=== PATIENT | male | born 1945 | race Caucasian/White ===

== ENCOUNTER 2018-12-16 13:08 | Inpatient (IN) | payer OTHER, BC ==
[~2018-12-16] VITALS: Ht 190.5 cm; Wt 77.7 kg
--- NOTE | ~2018-12-16 | EMS ---
[address] [address] EMS Patient Care Report Name: ROSEMARIE PETTIT Room #: 522B-B ADM IN M.R.#: [id number] Admission: 12/16/18 Attend Phys: Umair Pedraza DO Discharge: Date of : 45 Report #: [id number] THIS REPORT FOR: //name// Report Transmitted: 12/19/2018 09:42 EMS Care Summary [facility] MED-ACT Incident [id number] @ 12/16/2018 12:33 Incident Location [address] [place] [address] Patient ROSEMARIE PETTIT Male, 73 Years 1945 Patient Address [id number] [place] [address] Patient History Dementia,Hypertension,Parkinson's Disease,Depression,Anxiety, Patient Allergies Aspirin,Other drug allergy, Patient Medications Other, Atenolol, Chief Complaint Nausea post fall Disposition Transported No Lights/[place] Reason Falls Transported To [facility] Narrative [id number] dispatched code 3 to SNF on a fall. M1150 arrives on scene. Patient contact. Patient is sitting upright in a chair in the main foyer with staff [address] [address] EMS Patient Care Report Name: ROSEMARIE PETTIT Room #: 522B-B ADM IN M.R.#: [id number] Admission: 12/16/18 Attend Phys: Umair Pedraza, Discharge: Date of : 45 Report #: [id number] awaiting EMS. No immediate airway, breathing, or circulation life threats are noted. Patient appears to be a GCS of 14, which per staff, is the patient's baseline LOC secondary to dementia and reports that the patient is a resident of their dementia SNF unit. Staff reports that the patient fell from a standing position about x1 hour ago and had a witnessed fall. Patient is unsure if he struck his head, but denies any loss of consciousness. Patient reports that the chair he was holding had wheels / balls on the bottom that caused the chair to give out from him as he was bracing on it and he fell to the ground. Fire reports that they were there earlier for this incident and report lift assist only at that time as the family was contacted and they did not want him transported. Fire reports the patient had no complaints at that time. Staff reports that the patient should have been transported earlier as it is their policy that memory care patient's be transported post fall no matter what. Patient reports that he is now having some slight nausea after the fall, but denies any vomiting or diarrhea or pain. Patient denies any pain anywhere. Patient denies any neck or back pain, nor is any elicited with palpation. Patient denies any blood thinner medications or bleeding disorders. Patient denies any shortness of breath. Patient denies any headache, visual disturbances, or dizziness. Patient denies anything causing or leading up to fall as far as medical symptoms. Staff reports that the patient is more fatigued as well post fall, but the patient reports this is false and reports no increased fatigue. Staff reports family requests that the patient be taken to [facility] ER for further evaluation. Initial V/S and physical exam performed. A HTHN is noted. Physical exam findings are noted. Patient is able to stand and sit on the cot. Patient is secured to the cot. Patient is moved to and loaded into ambulance. Transport initiated non emergent to [facility]. En route patient's ABC's, LOC, V/S, and condition are monitored and reassessed with no significant changes are noted. Patient remains his baseline GCS of 14 upon arrival to the ER. Patient is transferred to [facility] nursing staff in ER room 4 via patient being able to stand and sit on ER bed. Incident terminated and M1150 is back in service. *HEAD: NO DCAP-BTLS. AIRWAY PATENT AND EYES PIERRE. *NECK: NO DCAP-BTLS. NO JVD, STOMA, SUB Q AIR, RETRACTIONS, OR MED ALERT TAGS ARE NOTED. TRACHEA MIDLINE. *CHEST: CHEST WALL PATENT WITH GOOD CHEST RISE NOTED. NO FLAIL CHEST OR PARADOXICAL MOTION NOTED. *ABDOMEN: NO DCAP-BTLS. ABDOMEN SOFT. NO MASSES, PULSATIONS, OR EVISCERATIONS ARE NOTED. *PELVIS: NO DCAP-BTLS. PELVIS APPEARS TO BE STABLE AND INTACT. NO OBVIOUS BLOOD OR INCONTINENCE NOTED. *BACK: NO ABNORMAL FINDINGS ARE NOTED OR REPORTED. *EXTREMITIES: NO DCAP-BTLS. GOOD PMS NOTED IN BOTH UPPER EXTREMITIES. GOOD MOTOR FUNCTION NOTED IN BOTH LOWER EXTREMITIES. [facility] [address] [place] [address] EMS Patient Care Report Name: ROSEMARIE PETTIT Room #: 522B-B ADM IN M.R.#: [id number] Admission: 12/16/18 Attend Phys: Umair Pedraza DO Discharge: Date of : 45 Report #: [id number] *SKIN: WARM, DRY, GOOD COLO. Initial Vitals @12:39P: 50,R: 16,BP: 178/92,Pain: 0/10,GCS: 14,SpO2: 98,Revised Trauma: 12, @12:54P: 50,R: 16,BP: 172/90,Pain: 0/10,GCS: 14,SpO2: 98,Revised Trauma: 12, Assessments @12:39MENTAL:Person Oriented,Event Oriented,Place Oriented,SKIN:HEENT:Head/Face: No Abnormalities,Neck/Airway: No Abnormalities,LUNG SOUNDS:General: Nausea,ABDOMEN:General: Nausea,PELVIS//GI:No Abnormalities,EXTREMITIES:Left Arm: No Abnormalities,Right Arm: No Abnormalities,Left Leg: No Abnormalities,Right Leg: No Abnormalities,PULSE:NEURO:No Abnormalities, Impression Nausea Timeline 12:32,Call Received 12:32,Psap Call 12:33,Dispatched 12:34,En Route 12:36,On Scene 12:37,At Patient 12:39,BP: 178/92 M,PULSE: 50,RR: 16 R,SPO2: 98 Ox,ETCO2: ,BG: ,PAIN: 0,GCS: 14, 12:43,Depart Scene 12:54,BP: 172/90 M,PULSE: 50,RR: 16 R,SPO2: 98 Ox,ETCO2: ,BG: ,PAIN: 0,GCS: 14, 13:04,At Destination 13:30,Call Closed Disclaimer v1.1 Copyright 2019 [employer] This EMS Care Summary contains data elements from the applicable legal record (which may be displayed differently). It is designed to provide pertinent information for the following purposes: continuity of care, clinical quality, and state data reporting. The complete legal record is available to ED staff and administrators of the receiving hospital in [employer] Patient Tracker. All data is provided "as is."
[2018-12-16 13:09] VITALS: BP 135/83
[2018-12-16] MEDS ORDERED: SINEMET 25-1001 EAC1 PO (13:22)
[2018-12-16] MEDS ORDERED: GABAPENTIN100 MG PO (13:22)
[2018-12-16] MEDS ORDERED: ATENOLOL 25 MG25 M1 PO (13:22)
[2018-12-16] MEDS ORDERED: DULOXETINE HCL60 MG PO (13:23)
[2018-12-16] MEDS ORDERED: MIRALAX119 GM PO (13:24)
[2018-12-16] MEDS ORDERED: XANAX1 MG PO (13:24)
[2018-12-16] MEDS ORDERED: NEURONTIN 400M400 M2 PO (13:24)
[2018-12-16] MEDS ORDERED: SEROPHENE50 MG PO (13:25)
[2018-12-16] MEDS ORDERED: LISINOPRIL2.5 MG PO (13:25)
[2018-12-16] MEDS ORDERED: AMITRIPTYLINE H50 M3 PO (13:25)
[2018-12-16] MEDS ORDERED: OXYBUTYNIN 5 MG5 M2 PO (13:25)
[2018-12-16] MEDS ORDERED: SEROQUEL 50 MG50 MG PO (15:00)
[2018-12-16 15:54] LABS: ABSOLUTE NEUTROPHILS 4.1 thou/uL (1.4-8.2); BASOPHILS 0.6 % (0.0-2.0); HEMATOCRIT 42.1 % (42.0-52.0); HEMOGLOBIN 14.3 gm/dL (14.0-18.0); LYMPHOCYTES 17.3 % (24.0-44.0); MCH 32.3 pg (26.0-34.0); MCV 95.1 fL (80.0-100.0); MONOCYTES 7.2 % (1.0-8.0); PLATELET COUNT 206 thou/uL (150-400); POLYS 70.9 % (36.0-66.0); RBC 4.43 mil/uL (4.50-6.00); WBC 5.8 thou/uL (4.0-11.0)
[2018-12-16 16:03] LABS: CALCIUM 8.9 mg/dL (8.5-10.1); CREATININE 1.1 mg/dL (0.7-1.3); POTASSIUM 3.6 mmol/L (3.5-5.1)
[2018-12-16 16:09] LABS: ALBUMIN 3.6 g/dL (3.4-5.0); DIRECT BILIRUBIN 0.1 mg/dL (<0.1-0.3); TOTAL BILIRUBIN 0.5 mg/dL (<0.1-1.0); TOTAL PROTEIN 6.8 g/dL (6.4-8.2)
[2018-12-16 16:28] LABS: URINE BILIRUBIN NEGATIVE (Negative); URINE BLOOD NEGATIVE (Negative); URINE CLARITY CLEAR; URINE COLOR YELLOW; URINE GLUCOSE-RANDOM* NEGATIVE (Negative); URINE KETONES NEGATIVE (Negative); URINE LEUKOCYTES-REFLEX NEGATIVE (Negative); URINE NITRITE-REFLEX NEGATIVE (Negative); URINE PROTEIN (DIPSTICK) NEGATIVE (Negative); URINE UROBILINOGEN 0.2 E.U./dl (0.2-1.0)
[2018-12-16 17:45] VITALS: BP 177/102
[2018-12-16 18:03] VITALS: BP 182/106
--- NOTE | 2018-12-16 18:23 | NUR ---
73 YEAR OLD MALE ARRIVES VIA WC FROM ER. PER ER REPORT CAME IN FROM [facility] AFTER A NON-INJURY FALL-REPORTED TO HAVE LONG HX OF DEPRESSION AND RECENTLY COMPLETED ECT SEPTEMBER 2018-RECENTLY HAS BECCOME MORE TEARFUL,MOOD SWINGS,INSOMNIA AND SOMATIC PREOCCUPATION,PARANOID THINKING IS HIM AND HAVING AFFAIRS AND HE WAS PLACED AT ASSISTED LIVING TO "GET ME OUT OF THE WAY" CALLING MULTIPLE TIMES DURING THE NIGHT. BP ELEVATED ON ADMIT AT 180/100. ALERT AND ORIENTED TO PERSON/PLACE-CONSTRICTED AFFECT ON ADMIT.
[2018-12-16 19:30] VITALS: BP 220/119
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
[2018-12-17 09:01] VITALS: BP 109/67
[2018-12-17 14:10] VITALS: BP 181/95; BP 196/108
--- NOTE | 2018-12-17 17:15 | NUR ---
SW spoke with pt's spouse and completed the SW intake. Fmaily meeting set up for 11 am 12/18.
[2018-12-17 17:35] VITALS: BP 144/91
--- NOTE | 2018-12-17 20:13 | NUR ---
Sleeping without s/o distress. Cooperative when awakened. Denies SI/HI, pain. Orientated to person and place. Gait very unsteady when up to bathroom. Placed in w/c for safety. Color pink with brisk capillary refill and palpable peripheral pulses. Reg HR auscultated in the low 50s. BP normotensive. Meds held d/t HR 52 and sBP <120. Breath sounds clear t/o, bilaterally equal. Active bowel sounds over soft, flat abdomen. 1200 Up ambulating in unit. States he is not having any anxiety. Participating in group. 1400 Palpable radial pulses +2/+4. Denies ANDERSON or discomfort. Repeated BP d/t HTN last night. BP 196/108 in R arm, 181/95 in L arm. States his BP is always labile. Dr. Aviles notified, Clonidine 0.1 mg ordered bid to start immediately so that he gets a dose at 1500 and one at 2100. 1600 Wanting to call . Attempted to call several times but phone was busy. He then gave me a number with a 913 area code to call . She stated to me on the phone that we needed to take that phone number off the list. I explained that he had given me the number to call. She agreed to speak with him. He spoke with her for approximately 10 min on the phone and stated she would talk to him again at 1100 tomorrow. Sat in dining room. 1700 Ambulating around unit and spending alot of time at nurses station. Requesting pen to write down information to discuss with Dr. Pedraza. Spoke with Dr. Pedraza in [facility] about plan of care. Repeat BP at 1735 was 144/91. 1830 Confused speech. States didn't give him amitriptiline for sleep from [facility]. Becoming fixated on amitriptiline for sleep. Requested charge nurse to speak to Dr. Pedraza regarding medication for sleep. Trazadone ordered for 2099. 1845 Charge nurse reports that he is becoming increasingly anxious. She gave him Ativan PO.
[2018-12-17 21:14] VITALS: BP 202/119
[2018-12-17 21:53] VITALS: BP 181/106
[2018-12-18 03:41] VITALS: BP 183/122
--- NOTE | 2018-12-18 03:57 | NUR ---
1909-Report received from day shift nurse and care assumed. The pt. was cooperative, A/O x2, notably anxious but polite and wanted to go to his room. No c.o. chest pain, shortness or air, or discomfort anywhere. His VS were taken at 1920 and eo=198/119, p=61. The Nurse Practioner was called and said to give the Lisinopril and Atenolol that were held this morning for low SBP. Re-check was = 181/106, p=60 after an hour. He was compliant with his other medications at also. He went to bed and slept for a few hours. At [facility] he was awake with anxiety and confusion about "where his shoes were because he was leaving in the morning". He was cordial, redirected to the situation and was given his scheduled Sinemet at midnite and also Ativan 0.5 mg. po prn. He slept for a few more hours. He began getting anxious at about 0300 and turned on his light and wrote notes/numbers on a paper. He said he needed "to go the bank down the street, I am not saying why, in the morning" BP was taken and was = 183/122, p=63. Nurse Practioner was called and ordered Hydralazine 50 mg. po prn q 6 hours for sbp>160 and it was given to him at 0345. He was notably nervous about "going to the bank in the morning" and he was looking at his numbers and notes he wrote. He was talked with awhile to calm him, he had no c.o. pain, no c.o. chest pain or shortness of air, and sitting on his bed with the light on. Will monitor high blood pressure readings.
--- NOTE | 2018-12-18 04:54 | NUR ---
The pt. said where is the front door repeatedly. He said "I have a meeting today at 11, is that the front door?" repeatedly.The pt. was in his room and when a blood pressure was being taken, he became acutely suspicious and said "you put something in there" and ripped the cuff off and left the room. He went to the exit door and pushed on the handle, differnt exit doors and said "where is the ground floor", "you put something in there". called and orderd Geodon 15 mg. IM x 1 now. He refused a re-check of his BP at this time. No c.o. chest pain, or shortness of air.
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
[2018-12-18 06:27] VITALS: BP 119/83
--- NOTE | 2018-12-18 06:28 | NUR ---
At 0630 the pt. was sitting in the day room, awakened and was compliant with bp and p test. He said "Oh, you have the day of reckoning". He had been sleeping softly relaxed for about 1 hour. Yj=038/83, p=50. No c.o. pain.
[2018-12-18 08:20] VITALS: BP 139/83
--- NOTE | 2018-12-18 08:25 | NUR ---
PT UP WALKING AROUND THIS AM. PT GAIT SEMI-WOBBLES. PT DIDN'T WANT TO TAKE BP MEDS AT FIRST STATING HE DIDN'T NEED THEM BECAUSE BP IS NORMAL 139/83. ENCOURAGED PT TO TAKE BP MEDS DUE TO MEDS HELP KEEP IT AT A NORMAL RANGE. HE WAS WORRIED OF BP BEING TOO LOW. PT ALSO WANTED TO HAVE REPORE WITH NURSE AND TALK ABOUT ANTI-PARKINSONS MEDS. PT STATED THEY ARE VERY IMPORTANT TO TAKE AND HE TAKES 4 A DAY. PT WANTED THIS INFO TO BE CONFIDENTIAL.
[2018-12-18 08:55] VITALS: BP 139/83
--- NOTE | 2018-12-18 17:34 | NUR ---
SW attended a family meeting with wilber, Aba (), and Yas. Both reported to SW that pt resides at [facility] in [place] and wants him to get stable enough to return there. They said he had a fall and has been behaving bizarre. He has been diagnosed with a Parkinson's in the past. The psych doctor would like pt to add painting and art work to his treatment as these are activities during his stay as they wre activities in enjoyed in the past. Pt reports that he notices he feels different between the hours of [id number]. The would like to meet again with the psych doctor for a family meeting next sunday at 11am. SW team will continue to follow pt during his stay.
[2018-12-18 20:21] VITALS: BP 217/126
[2018-12-18 23:03] VITALS: BP 217/126
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
--- NOTE | 2018-12-19 03:02 | NUR ---
PT RESTLESS AND DEFENSIVE EARLY IN SHIFT. ALLOWED PHYSICAL ASSESSMENT, BUT BECAME INCREASINGLY PARANOID. REFUSED HS MEDS. CLAIMING THAT WE ARE TRYING TO POISON HIM. PICKED UP A WALKER AND WAS THREATENING STAFF. SECURITY CALLED AND PT ESCORTED TO HIS ROOM AND GIVEN IM OF GEODON 15MG IM TO RT [place]. REMAINED RESTLESS FOR ANOTHER 30 MINUTES, BUT EVENTUALLY TOOK TO HIS BED AND HAS BEEN SLEEPING SINCE.
[2018-12-19 08:00] VITALS: BP 153/93
--- NOTE | 2018-12-19 08:00 | NUR ---
PT IN ROOM AND SHUTTING DOOR. PT STATED HE WAS IN THE MIDDLE OF SOMETHING AT THIS MOMENT, HE HAD HIS PANTS OFF. ASKED PT IF HE HAD SOME MORE PANTS, HE STATED YES AND SHUT DOOR. THIS NURSE NEEDED TO CHECK BP AND GIVE HIM MEDS.
[2018-12-19 08:14] VITALS: BP 186/120
--- NOTE | 2018-12-19 08:26 | NUR ---
ADM LORAZEPAM 0.25MG FOR ANXIETY AND HYDROLAZINE 50MG FOR BP 186/120, PULSE 70. PT TOOK MEDS WITHOUT ANY ISSUES. PT SITTING OUT IN DAY ROOM. PT WAS UP WALKING AROUND LOOKING FOR HIS WESTLEY. PT SMILING AFTER GETTING OUT OF ROOM.
--- NOTE | 2018-12-19 09:24 | NUR ---
RECHECKED BP AND WAS 153/93.
[2018-12-19 09:29] VITALS: BP 153/93
--- NOTE | 2018-12-19 10:00 | NUR ---
DR. CORMIER RECHECKED BP IS 148/95, 55.
--- NOTE | 2018-12-19 11:06 | NUR ---
PT CLAPPING HANDS IN BED.
[2018-12-19 11:50] LABS: HEMATOCRIT 41.8 % (42.0-52.0); MCHC 33.6 g/dL (28.0-37.0); MCV 95.1 fL (80.0-100.0); RBC 4.39 mil/uL (4.50-6.00); WBC 7.7 thou/uL (4.0-11.0)
[2018-12-19 12:04] LABS: CALCIUM 9.4 mg/dL (8.5-10.1); CREATININE 1.2 mg/dL (0.7-1.3); MAGNESIUM 2.2 mg/dL (1.8-2.4); POTASSIUM 3.6 mmol/L (3.5-5.1)
--- NOTE | 2018-12-19 14:49 | NUR ---
OBTAINED ORTHO BP SITTING BP 179/108, PULSE 58. STANDING 154/106, PULSE 60. PT WANDERING AROUND UNIT.
--- NOTE | 2018-12-19 15:59 | NUR ---
ADM LISINOPRIL 10MG PO X1 AND ALSO ATIVAN 0.25MG PO FOR ANXIETY AND ELEVATED BP.
[2018-12-19 19:39] VITALS: BP 182/105
--- NOTE | 2018-12-20 01:35 | NUR ---
Care assumed of patient at 1915: Patient alert and oriented to person. Confused on current time and location. Patient forgetful at times. Patient seated in day room at start of shift. Patient would watch part of football game that was playing then he was visualized pacing the halls, restless. Patient had difficulty making eye contact at times, would look at nurse suspicious. Patient would speak clear, logical thoughts at times then would speak non-sensical, disorganized thoughts. Patient woke up to use the bathroom around midnight. Patient disoriented, walking briskly, unsteady. Patient continent of bladder. Nurse provided medication scheduled at midnight at that time. Patient held medication and stated "will it hurt?" Patient was convinced that the pills were going to make him . Patient asked to use the phone to call his to say goodbye. Patient at one point asked to , he then stated he wasn't ready to and it was illegal for the state of [place]. Nurse sat with patient for quite awhile to re-orient him to the hospital and the purpose of the medication provided. In the midst of the non-sensical speech, he would have clear thoughts about just watching the football game and having yogurt for HS snack. Odd behaviors observed. Patient did end up taking all medications prescribed thus far this shift. Patient was able to go back to sleep after a long conversation with nurse. No aggression observed. No s/s of AH/VH observed. Patient did deny SI/HI but had the paranoia and fear that he was being killed. Patient did give a note to nurse to give to his Aba, to see if she could meet him for breakfast. Notified patient that he will be able to see or speak with Aba in the morning. Patient was able to fall back asleep and has been resting since.
[2018-12-20 07:20] VITALS: BP 198/117
[2018-12-20 08:00] VITALS: BP 198/117
--- NOTE | 2018-12-20 08:08 | EKG ---
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
--- NOTE | 2018-12-20 08:10 | NUR ---
PT DIDN'T KNOW WHAT HE WAS DOING HERE AND DIDN'T KNOW HIS NAME, ASKED PT HIS NAME AND HE STATED IT. PT STATED THAT SOMETHING ISN'T RIGHT, HE STATED HE FEELS LIKE HE GOT AMNESIA. PT DOESN'T APPEAR ALERT THIS AM. PT SEEMS SCARED.
--- NOTE | 2018-12-20 09:30 | NUR ---
DR. MORALES HERE FOR NEUROPSYCH TESTING. PT DIDN'T WANT TO GO INTO ROOM FOR TESTING. PT WANTING TO TALK WITH . PT JUST OFF PHONE WITH RICKIE HIS DAUGHTER. HE DIDN'T WANT HIS DAUGHTER TO GET OFF PHONE, HE STATED SOMETHING IS WRONG AND HE IS AT [facility] BUT DIDN'T KNOW WHY HE IS HERE. HE IS WANTING DAUGHTER TO COME GET HIM. PT WENT INTO ROOM FOR TESTING AND CAME OUT A FEW MINS LATER.
--- NOTE | 2018-12-20 10:57 | NUR ---
ADM ATIVAN 0.25MG PO FOR ANXIETY. PT SITTING ON COUCH AND WANTING SOMEONE TO TAKE HIM BACK TO [facility].
--- NOTE | 2018-12-20 11:41 | NUR ---
ALMA ROSA discussed with treatment team about pt's Aba and daughter Yas not wanting any updates to be provided to [facility] Elizalde. Due to the concern about continuity of care of pt being interrupted due to hospital not having the ability to communicate with his current [facility] facility, it was suggested that SW contact Aab to discuss if she would be comfortable now with hospital communicating with [facility]. ALMA ROSA contacted Aba to discuss communication with [facility], and she said she still would prefer hospital staff do not communicate with . She explained that she has worked in the medical field for a very long time and knows that information could work against pt. However, she did say she may feel more comfortable with updates being sent closer to pt' d/c date. ALMA ROSA explained that facilities have the right to say they will not take pts back without updates on care in the hospital. Aba agreed. ALMA ROSA and Aba will revisit this matter during the next family meeting on 01/25 @11am. SW team will continue to follow pt during his stay.
--- NOTE | 2018-12-20 14:21 | NUR ---
ADM CLONIDINE 0.2MG X1 AND ALSO LORAZEPAM 0.25MG PER DR. GAVIN. PT TAKEN MANUAL AND AUTOMATIC. PT BP 218/212.
--- NOTE | 2018-12-20 14:35 | NUR ---
PT REQUESTED TO LAY DOWN PER DRAlan ORDERS. PT STATED HE WANTED TO TELL THE DRAlan WHAT HE WANTED TO KNOW. PT ALSO STATED HE WANTED TO TALK WITH SOME MORE OF THE PHONE, PT WANTING HIS LEATHER SHOES.
[2018-12-20 15:03] LABS: HEMATOCRIT 42.4 % (42.0-52.0); HEMOGLOBIN 14.4 gm/dL (14.0-18.0); MCH 32.3 pg (26.0-34.0); RBC 4.46 mil/uL (4.50-6.00); WBC 5.9 thou/uL (4.0-11.0)
[2018-12-20 15:17] LABS: ALBUMIN 3.9 g/dL (3.4-5.0); CALCIUM 9.3 mg/dL (8.5-10.1); CREATININE 1.3 mg/dL (0.7-1.3); MAGNESIUM 2.2 mg/dL (1.8-2.4); POTASSIUM 3.5 mmol/L (3.5-5.1); TOTAL BILIRUBIN 0.5 mg/dL (<0.1-1.0); TOTAL PROTEIN 7.2 g/dL (6.4-8.2)
--- NOTE | 2018-12-20 15:35 | NUR ---
NOTIFIED DR. GAVIN ABOUT RECHECK TO BP OF 189/108, PULSE 67 SAT 95%. PT TALKING ABOUT WHEN HE WENT TO HOSPITAL IN AMBULANCE ONE TIME AND THEY STOPPED AND PARAMETIC SAID THAT IS UNUSUAL HAVE YOU SEEN THAT BEFORE. PT ASSISTED TO GETTING UP AND WAS UNSTEADY.
[2018-12-20 15:38] VITALS: BP 189/109
--- NOTE | 2018-12-20 16:14 | NUR ---
RECHECKED BP 189/108, ADM NORVASC 10MG PO.
--- NOTE | 2018-12-20 16:55 | NUR ---
PT UP WALKING AROUND AND WANTING TO GET CHECKED OUT OF HERE. STATED TO PT THAT WE ARM MONITORING HIS BP MORE. PT STATED THAT IT FLUCTUATES AND GOES UP AND DOWN. PT WANTING TO TALK TO WESTLEY. CALLED WESTLEY AND LET HER KNOW HE IS WANTING TO GO HOME. SHE STATED HE GETS MORE CONFUSED IN EVENING.
[2018-12-20 23:05] VITALS: BP 132/87
--- NOTE | 2018-12-21 00:20 | NUR ---
ASSUMED CARE OF THE PT AT 191 PM. THE PT WAS STANDING AT THE NURSES' STATION, HE TOOK HIS HS MEDICATIONS WITHOUT ANY DIFFICULTY. THE PT KEPT STANDING THERE AND HE WOULD NOT LEAVE THE NURSES' STATION. WALKS WITH A FAIRLY STEADY GAIT. HE WENT TO BED WITHOUT ANY DIFFICULTY.
--- NOTE | 2018-12-21 04:29 | NUR ---
THE PT APPEARS TO BE SLEEPING AT THIS TIME. REMAINS ON 12 MINUTE CHECKS FOR HIS SAFETY.
--- NOTE | 2018-12-21 06:09 | NUR ---
THE PT SLEPT 8 HOURS LAST NIGHT.
[2018-12-21 09:12] VITALS: BP 170/98
[2018-12-21 10:37] LABS: HEMATOCRIT 44.4 % (42.0-52.0); HEMOGLOBIN 14.9 gm/dL (14.0-18.0); MCHC 33.6 g/dL (28.0-37.0); MCV 95.5 fL (80.0-100.0); RBC 4.65 mil/uL (4.50-6.00); RDW 13.1 % (10.5-14.5); WBC 6.2 thou/uL (4.0-11.0)
[2018-12-21 10:52] LABS: CALCIUM 9.3 mg/dL (8.5-10.1); CREATININE 1.4 mg/dL (0.7-1.3); MAGNESIUM 2.2 mg/dL (1.8-2.4); POTASSIUM 3.3 mmol/L (3.5-5.1)
[2018-12-21 11:32] VITALS: BP 170/98
--- NOTE | 2018-12-21 11:43 | NUR ---
PATIENT WAS NPO PRIOR TO RENAL DOPPLER, PROCEDURE COMPLETED, RESULT IN CHART. PATIENT REMAIN CONFUSED, WANDERS, BUT REDIRECTABLE. PATIENT TOOK ALL MORNING MEDICATIONS EXCEPT MIRALAX " I ALREADY HAD BOWEL MOVEMENT". PATIENT INITIALLY REFUSED LAB DRAW THIS MORNING, " I HAVE TO TALK TO MY IF SHE APPROVES IT, I WILL LET HER DRAW BLOOD". PATIENT'S CALLED, AFTER TALKING TO , HE THEN ALLOWED BLOOD DRAW. PATIENT DENIES SUICIDAL/HOMICIDAL IDEATION. HE DENIES DEPRESSION/ANXIETY. NO AGTIATION OR AGGRESSIVE BEHAVIOR NOTED AT THIS TIME. PATIENT HAD A GOOD VISIT WITH . CURRENTLY UP AMBULATING IN THE [place]. AFFECT REMAIN FLAT, MOOD DEPRESSED, NO SIGN OF ACUTE DISTRESS NOTED AT THIS TIME, WILL MONITOR FOR SAFETY.
--- NOTE | 2018-12-21 16:12 | NUR ---
Pt requested to visit for some counseling. We met for 60 minutes and discussed his feelings about having Parkinson's , his coping skills and his feelings about his marriage and living in [facility]. This included some grief counseling but primarily Acceptance and Commitment therapy. Pt and Sw dicusssed the tension created when trying to control something that cannot be controlled and accepting life on life's terms. He dsiclosed some sadness about living in [place].
[2018-12-21 22:07] VITALS: BP 160/78
--- NOTE | 2018-12-21 23:19 | NUR ---
ASSUMED CARE OF THE PT AT 191 PM. THE PT WAS IN BED WHEN THIS REPAIRER TYPEWRITER CAME ON DUTY. HE THEN GOT UP AND ATE A SNACK. DENIES ANXIETY, DEPRESSION, SI/HI, A/V HALLUNICATIONS. WALKS WITH A STEADY GAIT. REMAINS ON 12 MINUTE CHECKS FOR HIS SAFETY.
--- NOTE | 2018-12-22 03:53 | NUR ---
THE PT APPEARS TO BE SLEEPING IN BED AT THIS TIME. [address] FOR HIS SAFETY.
--- NOTE | 2018-12-22 05:51 | NUR ---
the pt slept 8.6 hours last night.
--- NOTE | 2018-12-22 09:57 | NUR ---
hAS BEEN UP WANDERING AROUND UNIT, HE HAS BEEN QUIET, BUT ANSWERS QUESTIONS APPROPRIATELY, HE IS ALERT AND SOMEWHAT FORGETFUL AND CONFUSED, HE KNEW HIS NAME BUT WAS NOT SURE WHERE HE WAS, DID NOT KNOW THE DATE OR TIME, HE ATE BREAKFAST AND TOOK HIS MEDS WITHOUT ISSUES, HE IS CALM, HE DENIES SI/HI AND AVH. CONTINUE TO MONITOR FOR BEHAVIORS AND SAFETY ISSUES.
[2018-12-22 12:50] VITALS: BP 145/95
--- NOTE | 2018-12-22 15:00 | NUR ---
Barb met with pt per his request. He stated that he was aware that he was more confused today, and was shocked to hear that he was in inpt psych and for how long. We called his to say hi and he asked her to come and visit. Barb nichols provided him wiht a note about where he is, and when the family meeting would be, and who was his SW.
--- NOTE | 2018-12-22 23:13 | NUR ---
AT 23O0 PATIENT BECAME AGGRESSIVE TOWARDS STAFF AND PATIENT'S NURSE AND CHARGE NURSE SET OFF ALARM TO SECURITY. THIS NURSE CALLED LASHAWN METZGER CLINICAL EDUCATION SPECIALIST FOR ORDERS FOR PRN MEDS. PATIENT HAD GEODON 10MG IM AT 1747 AND NO OTHER PRNS WERE APPROPRIATE. ORDERS RECEIVED FOR HALDOL 5MG IM AND COGENTIN 1MG IM NOW WERE GIVEN AT THIS TIME.
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
--- NOTE | 2018-12-22 23:43 | NUR ---
ASSUMED CARE OF PT AT 1914--PT ASLEEP IN QUIET ROOM. 2244--PT EXITED THE QUIET ROOM AND BECAME PHYSICALLY AGGRESSIVE WITH STAFF--WOULD NOT GO BACK TO ROOM--WHEN STAFF TRIED TO ASSIST PT BECAME MORE PHYSICALLY AGGRESSIVE--SECURITY CALLED. SECURITY ASSISTED PT TO BED. SHORTLY THEREAFTER PT AGAIN EXITED THE ROOM PUSHING STAFF AND BACKING STAFF AGAINST WALL AND AGGRESSIVELY FORCING STAFF INTO ACTIVITY ROOM. EMERGENCY BUTTON ACTIVATED IN ACTIVITY ROOM. SECURITY RESPONDED ONCE AGAIN. PT BECAME AGGRESSIVE WITH SECURITY LUNGING AT ONE OFFICER. CHARGE NURSE PHONED DECK CADET FOR MEDICATION. SECURITY FORCEBLY RETURNED PT TO ROOM. MEDICATION ADMINSTERED. PT CURRENTLY ASLEEP IN QUIET ROOM PER HIS PREFERENCE. DOORS REMAIN UNLOCKED. WILL CONTINUE TO MONITOR.
[2018-12-23 07:45] VITALS: BP 141/82
--- NOTE | 2018-12-23 07:45 | NUR ---
PT HAD BEEN WALKING AROUND THIS AM WITH HIS CLOTHES AND TOWELS. ASSISTED PT BACH TO ROOM. PT PUT CLOTHES BACK. THEN PT HAD CLOTHES BUNDLE AGAIN AND WALKED OUT OF UNIT WHEN ANOTHER STAFF WAS COMING IN. PT WAS TRACKED DOWN AND ASSISTED BACK TO UNIT WITH ASSISTANCE FROM SECURITY AND STAFF. PT THEN PUT INTO QUIET ROOM AND SITTING ON BED. ATTEMPTED TO TAKE VITALS, PT WAS MORE AGGITATED WITH BP CUFF.
--- NOTE | 2018-12-23 07:52 | NUR ---
PT WAS ADM HALDOL 5MG AND ATIVAN 1MG IM TO RT HIP FOR AGGITATION. PT LAYING DOWN AT THIS TIME.
--- NOTE | 2018-12-23 10:00 | NUR ---
CHECKING ON PT, HE IS UP SITTING ON BED. DOOR TO QUIET ROOM STAYED OPEN AND ALSO PT BEING MONITORED BY CAMERA.
[2018-12-23 11:00] VITALS: BP 141/82
--- NOTE | 2018-12-23 11:00 | NUR ---
PT FAMILY HERE, PT UP IN W/C TO DINNING ROOM. PT ALLOWED THIS NURSE TO TAKE BP, PT ALSO TOOK MEDS HE REFUSED THIS AM.
--- NOTE | 2018-12-23 13:54 | NUR ---
ASSISTED PT TO BED. PT HOLDING PAD FROM W/C, PT STANDING AT DESK. PT REFUSED TO VOID BEFORE LAYING DOWN.
--- NOTE | 2018-12-23 15:50 | NUR ---
PT HAD LAB DRAW. PT SLEPT THREW IV STICK.
[2018-12-23 16:21] LABS: HEMATOCRIT 39.2 % (42.0-52.0); HEMOGLOBIN 13.3 gm/dL (14.0-18.0); MCH 32.1 pg (26.0-34.0); MCV 94.6 fL (80.0-100.0); RBC 4.14 mil/uL (4.50-6.00); WBC 6.5 thou/uL (4.0-11.0)
[2018-12-23 16:31] LABS: CALCIUM 9.2 mg/dL (8.5-10.1); CREATININE 1.4 mg/dL (0.7-1.3); MAGNESIUM 2.2 mg/dL (1.8-2.4); POTASSIUM 3.5 mmol/L (3.5-5.1)
[2018-12-23 23:24] VITALS: BP 145/95
--- NOTE | 2018-12-24 03:02 | NUR ---
PT OUT IN DAYROOM AT START OF EVENING. SITTING ALONE AND NOT INTERACTING. REFUSED VS, BUT ALLOWED RN TO ASSESS. HAD HS SNACK. REFUSED HS MEDS, BUT BEHAVIOR NON-VIOLENT. PARANOID, AND NOT WANTING TO GO TO ROOM EARLY. SAT UP IN DAY ROOM UNTIL 0230, AND FINALLY WENT TO ROOM AND TO BED. CURRENTLY SLEEPING.
[2018-12-24 05:36] LABS: HEMATOCRIT 39.6 % (42.0-52.0); HEMOGLOBIN 13.3 gm/dL (14.0-18.0); MCH 31.8 pg (26.0-34.0); MCHC 33.6 g/dL (28.0-37.0); MCV 94.6 fL (80.0-100.0); RBC 4.19 mil/uL (4.50-6.00); RDW 13.1 % (10.5-14.5); WBC 5.8 thou/uL (4.0-11.0)
[2018-12-24 05:56] LABS: CALCIUM 8.8 mg/dL (8.5-10.1); CREATININE 1.3 mg/dL (0.7-1.3); MAGNESIUM 2.1 mg/dL (1.8-2.4); POTASSIUM 3.7 mmol/L (3.5-5.1)
[2018-12-24 07:30] VITALS: BP 176/99
--- NOTE | 2018-12-24 07:45 | NUR ---
PT UP AT DESK AND WANTING TO KNOW ABOUT WHERE IS IS AND IF HE CAN TALK TO HER. PT EASILY REDIRECTED. PT WENT INTO DINNING ROOM TO WAIT FOR BREAKFAST.
--- NOTE | 2018-12-24 08:33 | NUR ---
PT TOOK MEDS WITHOUT ANY ISSUES. PT ALERT AND TALKING TO STAFF. PT FEEDING SELF. NO SIGNS OF AGGRESSIVE BEHAVIOR.
[2018-12-24 09:59] VITALS: BP 176/99
[2018-12-24 12:19] VITALS: BP 167/104
--- NOTE | 2018-12-24 12:40 | NUR ---
PT IS CONVERSING WITH ANOTHER PATIENT IN DINNING ROOM.
--- NOTE | 2018-12-24 12:49 | NUR ---
Date of Admission: 12/16/18 Date of Activity Therapy Assessment: 12/19/18 Activity Goal: Management of leisure time and anxiety symptoms Initial Goal: 2 Group activities/day Weekly progress towards goal: Did not achieve goals Group participation level: Minimal Behaviors observed: Patient's participation since admission has declined as patients wandering and behaviors have increased. When present in group, patient does not actively engage but rather quietly listens. Plan: No change towards goal
[2018-12-24 20:00] VITALS: BP 157/99
--- NOTE | 2018-12-25 01:51 | NUR ---
PATIENT HAS BEEN PLEASANT TONIGHT. HE CAME AND ASKED NURSE FOR TV CONTROL SO HE COULD WATCH BASEBALL. OTHER PEERS WERE OKAY WITH BASEBALL TOO. HE WATCHED FOR ABOUT 30MINUTES AND THEN CAME TO NURSE STATION AND SAID HE WANTED TO CALL HIS . I DIALED THE NUMBER TO SEE IF SHE WANTED TO TALK WITH HIM BUT GOT HER VM. LEFT A MESSAGE FOR HER. LET PATIENT KNOW THAT I WOULD GET HIM IF SHE CALLED BACK. HE WAS ANXIOUS AND PACING WAITING FOR HER TO CALL BACK. NO CALL BACK. HE ASKED IF WE COULD TRY AGAIN. I TRIED ONE MORE TIME WITH SAME RESULTS AND TOLD HIM THAT HE WOULD HAVE TO WAIT TILL TOMORROW. HE SAID HE THINKS HE MEETS WITH THE DR TOMORROW AND THINKS SHE WILL BE THERE TOO. PATIENT WENT TO HIS ROOM AND CHANGED INTO HIS PJ'S. HE TOOK HIS HS MEDS WITHOUT A PROBLEM. HE WAS GIVEN PRN LORAZEPAM D/T ANXIETY. NEW ORDER TO INCREASE HYDRALAZINE TO 50MG RECIEVED AND PATIENT TOOK MED AT 2220. PATIENT WAS SLEEPING HARD AT MIDNITE AND WOULD NOT WAKE UP ENOUGH TO TAKE HIS CARBIDOPA MIDNITE DOSE. WILL TRY AGAIN AT 0600. PATIENT HAS BEEN PLEASANT AND COOPERATIVE TONITE. HAVE NOT BEEN ABLE TO COLLECT A UA YET TONIGHT. BED ALARM ON AND BED IN LOW POSITION.
[2018-12-25 11:17] VITALS: BP 134/87
--- NOTE | 2018-12-25 13:31 | NUR ---
SW team attended a family meeting with pts Aba and and daughter Yas, pt, and psych doctor. Pts family agreed that since the d/c date is 12/27 that it is okay to send updates and communicate with Farz[facility] Veliz. ALMA ROSA contacted [facility] and spoke with Zuleika who asked for updated nursing notes and med list. She said they typically see the pt in person before d/c from the hospital. She said that Sunday morning is okay for pt to return. ALMA ROSA told her that his family will transport. SW team will continue to follow pt during his stay.
--- NOTE | 2018-12-25 13:46 | NUR ---
Alert and cooperative. Denies SI/HI, pain. Ambulatory t/o unit. No s/o distress. UA obtained per order. Lying in bed when not in dining room.
[2018-12-25 13:47] LABS: URINE BILIRUBIN NEGATIVE (Negative); URINE BLOOD NEGATIVE (Negative); URINE CLARITY CLEAR; URINE COLOR YELLOW; URINE GLUCOSE-RANDOM* NEGATIVE (Negative); URINE KETONES NEGATIVE (Negative); URINE LEUKOCYTES-REFLEX NEGATIVE (Negative); URINE NITRITE-REFLEX NEGATIVE (Negative); URINE PROTEIN (DIPSTICK) NEGATIVE (Negative)
[2018-12-25 14:58] VITALS: BP 150/87
[2018-12-25 19:34] VITALS: BP 184/103
--- NOTE | 2018-12-25 22:29 | NUR ---
CAME ON SHIFT AT 1900. PATIENT'S BP WHEN TAKEN WAS 184/103 AT 1905. RECHECKED PATIENT'S BP AT 0 AND PATIENT'S BP WAS 170/100. GAVE PATIENT HYDRALAZINE 50MG PRN AT 1921. RECHECKED PATIENT'S BP AN HOUR LATER AND IT NFN025/106 AT 2031. PATIENT HAD HYDRALAZINE 50MG SCHEDULED FOR 2200. I CHECKED BP AT 2215 AND BP WAS 181/108. NURSE CALLED TING VALLEJO AND SHE REVIEWED PATIENT CHART AND SAID TO CHECK BP AT 2330 AND GIVE THE 2200 SCHEDULED DOSE TO PATIENT THEN AND THEN GO AHEAD AND GIVE THE 0600 SCHEDULED DOSE IN THE MORNING. WILL CONTINUE TO MONITOR. PATIENT IS ASYMPTOMATIC FAR NO HEADACHE OR ANGER ISSUES. PATIENT IS MORE COHERENT AND ORIENTED TONIGHT. HE IS COOPERATIVE AND MORE SOCIAL AND STARTING CONVERSATIONS WITH STAFF THEY HELP HIM. PATIENT IS IN BED AT THIS TIME. BED ALARM ON AND BED IN LOW POSITION.
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
[2018-12-26 00:13] VITALS: BP 148/82
--- NOTE | 2018-12-26 06:55 | NUR ---
PATIENT'S BP THIS AM WAS 158/86. SCHEDULED HYDRALAZINE 50MG PO GIVEN. PATIENT IN GOOD SPIRITS AND ALERT/ORIENTED X 3 BUT FORGETFUL. HE HAS BEEN TRYING TO REMEMBER MY NAME AND OTHER LITTLE THINGS. PATIENT STATES HE DOES NOT FEEL LIKE HE SLEEPS WELL AT NIGHT. HE SAYS HE DOESN'T FEEL RESTED.
[2018-12-26 09:06] VITALS: BP 144/96
--- NOTE | 2018-12-26 10:54 | NUR ---
Nutrition: Seen for LOS on [facility] unit. Laying in bed for interview. He is on a 2 g Na diet, eating 100% of his last 5 consecutive meals. Overall meal average = 80% from 12/20 through 12/26 breakfast. Admit: lewy body dementia. No weight hx dating back 2 yrs to review. Currently at healthy BMI 21.4 kg/m2 at 171#. Planned discharge tomorrow to care facility. 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 RD offered to help change upcoming menu choices i.e. sandwich where temperature wouldn't be affected (i.e. meat getting cold) but pt stated it had nothing to do with food served/offered. RD shared quality protein foods to continue focusing on after discharge, well rounded food groups. Unsure of retention or interest as pt kept changing subject. Low nutrition risk given healthy wt and consistent po trends at 80% or better.
[2018-12-26 11:48] VITALS: BP 149/96
--- NOTE | 2018-12-26 16:00 | NUR ---
[employer] received a call from Zuleika stating that she had not received a fax with updates for pt. [employer] confirmed fax and told her she will resent. Zuleika said she had an emergency come up and will not be able to visit pt today. However, she will do so tomorrow. [employer] asked if 11 am d/c tomorrow was okay and she said yes. SW team will continue to follow pt during his stay.
--- NOTE | 2018-12-26 16:12 | NUR ---
PATIENT HAS BEEN UP AND OUT ON THE UNIT, ALERT AND ORIENTED X 2-3, ABLE TO MAKE NEEDS KNOWN. PATIENT AMBULATES WITH SLOW STEADY GAIT. PATIENT TOOK ALL MEDICATION WHOLE WITHOUT DIFFICULTY. PATIENT IS EATING MEALS, AND DRINKING FLUID WELL. PATIENT DENIES SUICIDAL/HOMICIDAL IDEATION. HE DENIES DEPRESSION/ ANXIETY, PATIENT DENIES AUDITORY/VISUAL HALLUCINATION. HAD NICE VISIT WITH TODAY. NO AGGRESSION OR AGITATION NOTED. PATIENT CAN BE ISOLATIVE AT TIMES, DECLINES SOME GROUP SESSIONS. WILL CONTINUE TO ENCOURAGE GROUP PARTICIPATION, AND MONITOR FOR SAFETY.
[2018-12-26 19:43] VITALS: BP 149/95
--- NOTE | 2018-12-26 22:59 | NUR ---
PT WALKING IN HALLS AND DAY ROOM. FOLLOWING NURSE. ASKING IF WE HAVE MET BEFORE. ASKED ABOUT [facility]. ASKED IF NURSE HAD PICTURE OF HIS . 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 COMPLIANT WITH MEDS. PT HAD PHONE CALL WITH . PLAN FOR DC IN AM.
[2018-12-27 08:28] VITALS: BP 180/116
[2018-12-27 09:44] VITALS: BP 128/90
[2018-12-27] MEDS ORDERED: NORVASC10 MG PO (10:58)
[2018-12-27] MEDS ORDERED: HYDRALAZINE 5050 MG PO (10:58)
[2018-12-27] MEDS ORDERED: BENAZEPRIL HCL40 MG PO (10:59)
[2018-12-27] MEDS ORDERED: TEGRETOL XR100 MG PO (10:59)
[2018-12-27] MEDS ORDERED: NEURONTIN 400400 M1 PO (11:00)
[2018-12-27] MEDS ORDERED: GABAPENTIN 100100 MG PO (11:00)
[2018-12-27] MEDS ORDERED: CYMBALTA30 MG PO (11:01)
[2018-12-27] MEDS ORDERED: MIRALAX17 GM PO (11:01)
--- NOTE | 2018-12-27 11:39 | NUR ---
SW D/C note This morning SW observed pt be confused; he stated that he does not know when his is coming back and that he does not want to go to [facility]. When pt's arrived, he did not appear to relax. He continued to walk the halls. Pt's Aba was here to transport pt to [facility]. SW asked Aba if she feels comfortable with transporting pt, and she said she was. ALMA ROSA asked if there was anything else she could assist with, and Aba said no. No other needs for SW team to address at this time.
--- NOTE | 2018-12-27 16:25 | NUR ---
1130 Alert, orientated to person and place. Cooperative with some confused speech. Ambulates without difficulty. Denies SI/HI. Denies pain. Color pink with brisk capillary refill and +2 peripheral pulses. BP this am 180/116. AM meds given and BP rechecked an hour later, much improved. Regular HR auscultated. Breath sounds clear t/o, bilaterally equal. Active bowel sounds over soft, flat abdomen. Incontinent of urine in brief this AM, able to urinate in toilet when awake. Discharge instructions given to . Transferred to [facility] under 's care after report called. Aba verbalizes understanding of plan.
--- NOTE | 2018-12-28 23:20 | D ---
[facility] [place] [address] DISCHARGE SUMMARY Name: ROSEMARIE PETTIT Room #: 522B-B DIS IN M.R.#: [id number] Admission: 12/16/18 Attend Phys: Umair Pedraza DO Discharge: 12/27/18 Date of : 45 Report #: [id number] THIS REPORT FOR: //name// CC: Umair Pedraza Wai [facility] DATE OF SERVICE: 12/27/2018 ATTENDING PSYCHIATRIST: Umair Pedraza DO. 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 MEDICAL COMORBIDITIES: Include hypertension, much improved and controlled; Parkinson's disease, likely secondary to Lewy body. DISCHARGE PLAN: Discharging to memory care at [facility] related to the psychiatric medical care to be provided by the receiving facility. DIET: Regular. DISCHARGE MEDICATIONS: Carbidopa/levodopa 25/100 tablet 1-1/2 tablets 4 times daily, hydralazine 50 mg oral scheduled every 8 hours for hypertension, amlodipine besylate 10 mg oral daily, benazepril which is lisinopril 40 mg p.o. daily, carbamazepine 400 mg oral twice daily for mood stabilization, gabapentin 400 mg oral at bedtime and 200 mg twice daily additionally of gabapentin, duloxetine 60 mg oral daily for depression. I was in the process of tapering off fluoxetine, so consideration should be given to continuing taper in a 2-3 week timeframe and polyethylene glycol 17 grams oral daily. LABORATORY DATA: Significant laboratories this admission: Sodium was 142, potassium 3.7, chloride 103, bicarbonate 33, BUN 30, creatinine 1.3, estimated GFR 54, glucose 98, calcium 8.8, magnesium 2.1, AST 28, ALT 5, alkaline phosphatase 109, total protein 7.2, albumin 3.9. White count 5.8, H and H 13.3 and 39.6, and platelet count 175,000. Urinalysis was negative. Renal ultrasound was done showing right renal cyst. No definite renal artery stenosis. Proximal left main renal artery is not well visualized that was done out of concern of the resistant hypertension. REASON FOR ADMISSION: A 73-year-old male, sent from [facility] with apparently, he was holding onto a chair and the chair slipped out from under him. EMS was called. EMS was then called back in the Emergency Room. The patient sees Dr. Dede Espinoza for Psychiatry as outpatient and Dr. Thad Davies for Neurology, reported the patient had been more agitated, restless, and [facility] [address] [place] [address] DISCHARGE SUMMARY Name: ROSEMARIE PETTIT Room #: 522B-B [facility] IN M.R.#: [id number] Admission: 12/16/18 Attend Phys: Umair Pedraza, Discharge: 12/27/18 Date of : 45 Report #: [id number] frantic. I believe this was contributing to his falls. Reportedly, he was severely depressed. Also, it had been noted that he has been emotionally labile, crying hysterically on a daily basis, paranoid. HOSPITAL COURSE: The patient was admitted to Geriatric Psychiatry Unit. Long discussion was had with his and daughter about his diagnosis. I was able to reach his neurologist, Dr. Thad Davies. He felt that the patient was benefiting from carbidopa/levodopa, so he left that in place. Given the high possibility of Lewy body disease, I elected to utilize anticonvulsant such as Tegretol-XR, it was titrated to its discharge dose. The last blood level was 5.2 on 12/25/2018 before I increased it to 400 mg, so I would recommend a repeat blood level as long as it stays under 12 that is satisfactory. Also, it should be noted carbamazepine is an auto-inducer, which means level will go down slightly, no matter what compared to anticonvulsants that have no auto-induction property. At the time of discharge, he was calm, not suicidal or homicidal. There were several family meetings held. Overall, it was discussed this is a [id number] prognosis. Family was coming around and understanding that. PHYSICAL EXAMINATION: VITAL SIGNS: At day of discharge are as follows: BP 128/90, pulse 72. He was afebrile. MUSCULOSKELETAL: Slow gait. Normal station. MENTAL STATUS EXAMINATION: This is a well-developed, thin, tall, male. BMI 21.4, weight 77.7 kilos, height 190 cm. Attention limited. Concentration limited. Speech is normal rate. Thought process is linear and goal directed. Thought content, noted poverty of thought. No psychomotor agitation, some psychomotor retardation. Denied SI or HI, some helplessness, hopelessness. Denied homicidal intent or plan, suicidal intent or plan. Memory known to be impaired. Insight limited. Judgment limited. Fund of knowledge well below baseline. 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 PROGNOSIS: For this patient is guarded to poor given the relative aggressiveness of his cognitive decline at the fairly young age of 73, combined with the effects of the parkinsonian symptoms. <ELECTRONICALLY SIGNED> By: Umair Pedraza DO 12/28/18 2320 [id number] Umair Pedraza, /nt
== END 2018-12-27 11:30 | DRG 884 ==
LOC: ER 13:08 → EDBD 13:08 → SBH 15:10 → EROBS 15:10 → SBH 15:10
PROVIDERS: Emergency Medicine; Internal Medicine; ADMIT Psychiatry & Neurology Psychiatry
DX: F01.51 Vascular dementia, unspecified severity, with behavioral disturbance (principal); F33.2 Major depressive disorder, recurrent severe without psychotic features; G20 Parkinson's disease; F41.9 Anxiety disorder, unspecified; I10 Essential (primary) hypertension; Z88.6 Allergy status to analgesic agent; Z88.8 Allergy status to other drugs, medicaments and biological substances; Z90.49 Acquired absence of other specified parts of digestive tract; Z85.820 Personal history of malignant melanoma of skin
CPT/HCPCS: 10880